=== PATIENT | male | born 1995 | race Native Hawaiian/Other Pacific Islander ===

== ENCOUNTER 2021-06-22 10:36 | Emergency (ER) | payer BC ==
[~2021-06-22] VITALS: Ht 190.5 cm; Wt 124.7 kg
[2021-06-22 10:41] VITALS: TEMP 97.7
[2021-06-22 11:08] LABS: PLATELET COUNT 317 K/uL (142-355)
[2021-06-22 11:09] LABS: POTASSIUM 3.2 mmol/L (3.6-5.2)
[2021-06-22 13:17] VITALS: BP 111/54
== END 2021-06-22 13:17 | disposition home or self-care (01) ==
LOC: ED 10:36
PROVIDERS: Emergency Medicine
DX: R55 Syncope and collapse (principal); B34.9 Viral infection, unspecified; U07.1 COVID-19; E87.6 Hypokalemia
CPT/HCPCS: 80048; 84484; 85027; 85379; 85610; 85730; 93005; 99283